=== PATIENT | male | born 1990 | race Two or more races ===

== ENCOUNTER 2016-08-28 11:49 | Emergency (ER) | payer SELFPAY ==
[~2016-08-28] VITALS: Ht 162.6 cm; Wt 72.6 kg
[2016-08-28] MEDS ORDERED: LIDOCAINE WITH 8.4% SOD BICARB 3 ML DISP.SYRIN. IJ ONE (12:16)
--- NOTE | 2016-08-28 12:30 | PHYS DOC ---
Past History Past Medical History: No Pertinent History Past Surgical History: No Surgical History Alcohol Use: None Drug Use: None Adult General Chief Complaint Chief Complaint: LACERATION/AVULSION HPI HPI 26-year-old male presenting to the emergency department after injuring his head well working. He reports hitting his head on lumbar while he was walking. He denies loss of consciousness. He reports last tetanus is unknown. He denies any neck pain numbness weakness or tingling. He is a mild headache that is nonradiating intermittent and without alleviating factors. He did sustain a laceration to his head. Review of systems is negative for chest pain shortness of breath neck pain fevers or chills. All other review of systems is negative unless otherwise noted in history of present illness. ED course: 26-year-old gentleman presenting to the emergency department after sustaining a 3-1/2 cm laceration to the left side of his head. This was repaired in the emergency department. Otherwise nontender midline neck. No other traumatic injuries identified. Tetanus was updated and he was subsequent discharged home. The patient was then discharged home in stable condition to follow up with their primary care physician over the next 2-3 days. They were to return if their symptoms worsened or if they were concerned for any reason. [id number] discharge instructions and return precautions were given. Patient' s questions were answered to their satisfaction. Patient is comfortable plan. Cymraes head CT rules applied. No head CT recommended. Review of Systems Review of Systems SEE ABOVE. Current Medications Current Medications Current Medications Medications (Trade) Dose Ordered Sig/[facility] Start Time Stop Time Status Last Admin Dose Admin Lidocaine/Sodium Bicarbonate (Buffered Lidocaine 1%) 3 ml STSiving Egil [place]-MED ONCE 08/28/16 12:16 08/28/16 12:17 DC Allergies Allergies Allergies Coded Allergies Type Severity Reaction Last Updated Verified No Known Drug Allergies 08/28/16 No Physical Exam Physical Exam Constitutional: Well developed, well nourished, no acute distress, non-toxic appearance. [] HENT: Normocephalic, bilateral external ears normal, oropharynx moist, no oral exudates, nose normal. 3.5 cm laceration to the left parietal region. Eyes: PERRLA, EOMI, conjunctiva normal, no discharge. [] Neck: Normal range of motion, no tenderness, supple, no stridor. Posterior neck is nontender to palpation midline. No step-offs. Cardiovascular:Heart rate regular rhythm, no murmur [] Lungs & Thorax: Bilateral breath sounds clear to auscultation [] Abdomen: Bowel sounds normal, soft, no tenderness, no masses, no pulsatile masses. [] Skin: Warm, dry, no erythema, no rash. [] Back: No tenderness, no CVA tenderness. [] Extremities: No tenderness, no cyanosis, no clubbing, ROM intact, no edema. [] Neurologic: Mental status: Awake oriented and alert x3 Cranial nerves: Extraocular movements intact, eyebrows han bilaterally smile symmetric, uvula elevation, shoulder shrug intact, tongue protrusion normal DTRs: 2+ Sensation: equal and normal in all extremities Strength: 5/5 in upper and lower extremities bilaterally Psychologic: Affect normal, judgement normal, mood normal. [] Current Patient Data Vital Signs Vital Signs Date Time Temp Pulse Resp B/P (MAP) Pulse Ox O2 Delivery O2 Flow Rate FiO2 08/28/16 12:03 98.3 73 20 99 EKG EKG [] Radiology/Procedures Radiology/Procedures [] Course & Med Decision Making Course & Med Decision Making Pertinent Labs and Imaging studies reviewed. (See chart for details) [] Dragon Disclaimer Dragon Disclaimer This chart was dictated in whole or in part using Voice Recognition software in a busy, high-work load, and often noisy Emergency Department environment. It may contain unintended and wholly unrecognized errors or omissions. Departure Departure: Impression: Primary Impression: Scalp laceration Additional Impression: Concussion Disposition: 01 HOME, SELF-CARE Condition: STABLE Referrals: PCP,NO (PCP) Patient Instructions: Concussion and Brain Injury, Laceration Care, Adult Additional Instructions: Thank you for allowing us to participate in your care today. Followup with your primary care physician in 3 days if your symptoms do not improve. Call your Primary Doctor tomorrow and inform them of your visit today. If you do not have a primary care provider you can ask for a list of our primary care providers. Return to the emergency department you have any new or concerning findings. This should be evaluated by the primary care physician and any necessary consulting services for continued management within a few days after discharge. Return to emergency room if you have any new or concerning symptoms including but not limited to fever, chills, nausea, vomiting, intractable pain, any new rashes, chest pain, shortness of air, uncontrolled bleeding, difficulty breathing, and/or vision loss. Laceration Repair Lac Repair Indication scalp laceration Procedure: The patient was placed in appropriate positioning and 1% buffered lidocaine was used for anesthesia. The laceration was repaired using rosa. Total repaired wound length is 3.5 cm. No complications Problem Qualifiers DUDLEY SOLANO MD Aug 28, 2016 12:30
[2016-08-28 12:42] VITALS: BP 138/87
[2016-08-28] MEDS ORDERED: DIPHTH,PERTUSS(ACELL),TET TOX 0.5 ML DISP.SYRIN. VAX IM ONE (12:45)
== END 2016-08-28 12:50 | disposition home or self-care (01) ==
LOC: ER 11:49
DX: S06.0X0A Concussion without loss of consciousness, initial encounter (principal); S01.01XA Laceration without foreign body of scalp, initial encounter; W22.03XA Walked into furniture, initial encounter; Y93.01 Activity, walking, marching and hiking; Y99.8 Other external cause status; Y92.89 Other specified places as the place of occurrence of the external cause
CPT/HCPCS: 12002; 90471; 90715; 99283-25

== ENCOUNTER 2016-09-05 14:38 | Emergency (ER) | payer SELFPAY ==
[2016-09-05 14:40] VITALS: BP 120/65
--- NOTE | 2016-09-05 14:59 | PHYS DOC ---
General Chief Complaint: SUTURE/STAPLE REMOVAL Stated Complaint: STAPLE REMOVAL Time Seen by MD: 14:54 Source: patient, old records Exam Limitations: no limitations Problems: History of Present Illness Initial Comments Patient is a 26-year-old male who returns to the emergency department for staple removal. Patient states and records indicate he was here 8 days ago after hitting his head on lumbar suffering a 3.5 cm scalp laceration. It was cleaned and repaired with rosa. Patient states that he has been following wound care instructions and that he has had no new or changing symptoms he denies swelling pain or discharge. He has no other complaints. Timing/Duration: 1 week Severity: moderate Modifying Factors: improves with other Associated Symptoms: other Allergies: Coded Allergies: No Known Drug Allergies (Unverified , 08/28/16) Past Medical History Medical History: no pertinent history Surgical History: noncontributory Social History Smoker: non-smoker Alcohol: none Drugs: none Review of Systems Constitutional: denies chills, denies fever, denies malaise Respiratory: denies cough, denies shortness of breath Cardiovascular: denies chest pain, denies palpitations Gastrointestinal: denies nausea, denies vomiting Musculoskeletal: denies joint swelling, denies neck pain Skin: see HPI Psychiatric/Neurological: denies headache, denies numbness, denies paresthesia Physical Exam General Appearance: WD/WN, no apparent distress Ear, Nose, Throat: hearing grossly normal, normal ENT inspection Neck: full range of motion, supple Respiratory: normal breath sounds, no respiratory distress Extremities: normal range of motion, non-tender Neurologic/Psychiatric: peoplesoft analyst II-XII nml as tested, no motor/sensory deficits, alert, normal mood/affect, oriented x 3 Skin: warm/dry (left occipital healing laceration rosa in place edges are approximated. No evidence of infection rosa are ready to be removed.) Orders, Labs, Meds Wound rechecked after staple removal by RN, no new or changing symptoms no bleeding discharge. Pt denies questions or complaints. Departure Time of Disposition: 14:58 Disposition: 01 HOME, SELF-CARE Diagnosis: staple removal Condition: GOOD Patient Instructions: Staple Removal, Care After Additional Instructions: Wash the area twice daily with soap and warm water for the next 2-3 days. Follow-up with your doctor or return to the ED with new or worsening symptoms. FAISAL JEFFREY DO Sep 05, 2016 14:59
== END 2016-09-05 15:05 | disposition home or self-care (01) ==
LOC: ER 14:38
DX: S01.01XD Laceration without foreign body of scalp, subsequent encounter (principal); X58.XXXD Exposure to other specified factors, subsequent encounter; Y99.8 Other external cause status; Y92.89 Other specified places as the place of occurrence of the external cause
CPT/HCPCS: 99281

== ENCOUNTER 2019-04-17 12:46 | Emergency (ER) | payer OTHER ==
[~2019-04-17] VITALS: Ht 162.6 cm; Wt 66.7 kg
[2019-04-17 12:46] VITALS: BP 121/53
[2019-04-17] MEDS ORDERED: IBUPROFEN 600 MG TABLET. PO ONE (13:00)
[2019-04-17] MEDS ORDERED: ACETAMINOPHEN 500 MG TABLET PO ONE (13:00)
--- NOTE | 2019-04-17 13:02 | PHYS DOC ---
Past History Past Medical History: No Pertinent History Past Surgical History: No Surgical History Alcohol Use: None Drug Use: None Adult General Chief Complaint Chief Complaint: FLU SYMPTOM HPI HPI Patient is a 29-year-old male who presents with complaint of fever and chills since yesterday. Denies cough, congestion, sore throat, ear pain. Last took ibuprofen at 4:00 this morning. Patient was cleansed of a headache. No neck stiffness. No recent sick contacts. Review of Systems Review of Systems All other ROS is negative unless otherwise stated in HPI Allergies Allergies Allergies Coded Allergies Type Severity Reaction Last Updated Verified No Known Drug Allergies 08/28/16 No Physical Exam Physical Exam See above Constitutional: Well developed, well nourished, appears ill HENT: Normocephalic, atraumatic, bilateral external ears normal, oropharynx moist, no oral exudates, nose normal. Posterior pharynx normal Eyes: PERRLA, EOMI, conjunctiva normal, no discharge. [] Neck: Normal range of motion, no tenderness, supple, no stridor. [] Cardiovascular:Heart rate regular rhythm, no murmur [] Lungs & Thorax: Bilateral breath sounds clear to auscultation [] Abdomen: Bowel sounds normal, soft, no tenderness, no masses, no pulsatile masses. [] Skin: Hot, dry, no erythema, no rash. [] Back: No tenderness, no CVA tenderness. [] Extremities: No tenderness, no cyanosis, no clubbing, ROM intact, no edema. [] Neurologic: Alert and oriented X 3, normal motor function, normal sensory funct ion, no focal deficits noted. [] Psychologic: Affect normal, judgement normal, mood normal. [] Current Patient Data Lab Results Laboratory Tests Test 04/17/19 12:52 Influenza Type A (Rapid) Negative Influenza Type B (Rapid) Negative Current Medications Medications (Trade) Dose Ordered Sig/Stanley Route PRN Reason Start Time Stop Time Status Last Admin Dose Admin Ibuprofen (Motrin) 600 mg 1X ONCE PO 04/17/19 13:00 04/17/19 13:07 DC 04/17/19 13:00 Acetaminophen (Tylenol) 1,000 mg 1X ONCE PO 04/17/19 13:00 04/17/19 13:07 DC 04/17/19 13:00 EKG EKG [] Radiology/Procedures Radiology/Procedures [] Course & Med Decision Making Course & Med Decision Making Pertinent Labs and Imaging studies reviewed. (See chart for details) Patient seen for flulike symptoms. We'll check for flu and give ibuprofen and Tylenol for fever. Flu is negative but we will go ahead and treat based on symptoms. Dragon Disclaimer Dragon Disclaimer This electronic medical record was generated, in whole or in part, using a voice recognition dictation system. Departure Departure: Impression: Primary Impression: Flu-like symptoms Additional Impression: Fever Disposition: HOME, SELF-CARE Condition: STABLE Referrals: PCP,NO (PCP) Patient Instructions: Influenza, Adult Additional Instructions: Alternate ibuprofen and Tylenol every 3-4 hours for fever. Push fluids Scripts Oseltamivir Phosphate (TAMIFLU) 75 Mg Capsule 1 CAP PO BID for Flu Symptoms, #10 CAP Prov: AMOS RAZO DO 04/17/19 Problem Qualifiers AMOS RAZO DO Apr 17, 2019 13:02
[2019-04-17 13:20] LABS: INFLUENZA A PATIENT NEGATIVE (NEGATIVE); INFLUENZA B PATIENT NEGATIVE (NEGATIVE)
[2019-04-17] MEDS ORDERED: OSEL75CA PO (13:33)
== END 2019-04-17 13:35 | disposition home or self-care (01) ==
LOC: ER 12:46
DX: R50.9 Fever, unspecified (principal); R51 Headache
CPT/HCPCS: 87804; 99284

== ENCOUNTER 2019-11-20 05:11 | Emergency (ER) | payer OTHER ==
[~2019-11-20] VITALS: Ht 162.6 cm; Wt 69.3 kg
[~2019-11-20 05:11] MED LIST: OSEL75CA PO
--- NOTE | 2019-11-20 05:36 | PHYS DOC ---
Past History Past Medical History: No Pertinent History (TRENT CACERES MD) Past Surgical History: No Surgical History (TRENT CACERES MD) Alcohol Use: None Drug Use: None (TRENT CACERES MD) General Adult HPI: HPI: ".. I... fall... yesterday... pickup.... I... Mucho dolar.. in [place].. .. " Patient is a 29 year old male from [place] who presents with above hx and complaints severe pain in left arm with localization and left elbow. Patient was unloading objects from the back of his pickup, and fell backwards off his pickup. Patient attempted to break his fall with an outstretched arm- FOOSH injury and then impacted Lt elbow.. Patient has obvious marked swelling in left elbow. There appears to be marked tenderness on percussion of proximal radial. Does have deltoid sensation. Does have distal humerus tenderness and proximal forearm tenderness. Patient is left-hand dominant. Distal capillary refill left hand is equal to right hand. Injury occurred at 2200 hrs. Patient works and lawn care. No ice immunosuppression. No history of fever or chills. Denies recent travel. Denies specific ill contacts. Denies any history of recent fever or chills. (TRENT CACERES MD) Review of Systems: Review of Systems: Constitutional: Denies fever or chills Eyes: Denies change in visual acuity HENT: Denies nasal congestion or sore throat Respiratory: Denies cough or shortness of breath Cardiovascular: Denies chest pain or edema GI: Denies abdominal pain, nausea, vomiting, bloody stools or diarrhea : Denies dysuria Musculoskeletal: Complains of left arm pain after fall out of back a pickup yesterday Integument: Denies rash Neurologic: Denies headache, focal weakness or sensory changes Endocrine: Denies polyuria or polydipsia Lymphatic: Denies swollen glands Psychiatric: Denies depression or anxiety (TRENT CACERES MD) Heart Score: Risk Factors: Risk Factors: DM, Current or recent (<one month) smoker, HTN, HLP, family hist ory of CAD, obesity. Risk Scores: Score 0 - 3: 2.5% MACE over next 6 weeks - Discharge Home Score 4 - 6: 20.3% MACE over next 6 weeks - Admit for Clinical Observation Score 7 - 10: 72.7% MACE over next 6 weeks - Early Invasive Strategies (TRENT CACERES MD) Family History: Family History: Noncontributory to presentation (TRENT CACERES MD) Current Medications: Current Meds: See nursing for home meds (TRENT CACERES MD) Allergies: Allergies: Allergies Coded Allergies Type Severity Reaction Last Updated Verified No Known Drug Allergies 08/28/16 No (TRENT CACERES MD) Physical Exam: PE: Constitutional: in moderate acute distress, non-toxic appearance. [] HENT: Normocephalic, atraumatic, bilateral external ears normal, oropharynx moist, no oral exudates, nose normal. [] Eyes: PERRLA, EOMI, conjunctiva normal, no discharge. [] Neck: Normal range of motion, no tenderness, supple, no stridor. [] Cardiovascular:Heart rate regular rhythm, no murmur [] Lungs & Thorax: Bilateral breath sounds equal at apex on auscultation [] Abdomen: Bowel sounds normal, soft, no tenderness, no masses, no pulsatile masses. [] Skin: Warm, dry, no erythema, no rash. [] Back: No tenderness, no CVA tenderness. [] Extremities: No tenderness, no cyanosis, no clubbing, ROM intact, no edema. Except findings as noted in left arm as per HPI Neurologic: Alert and oriented X 3, normal motor function, normal sensory function, no focal deficits noted. Except findings as noted in left arm as per HPI Psychologic: Affect anxious, judgement normal, mood normal. [] (TRENT CACERES MD) EKG: EKG: [] (TRENT CACERES MD) Radiology/Procedures: Radiology/Procedures: [][address] [address] IMAGING REPORT Signed PATIENT: HONEY TOPETE: [id number] : 1990 LOCATION: ER AGE: 29 SEX: M EXAM STATUS: REG ER ORD. PHYSICIAN: TRENT CACERES MD REASON: fall out back pickup PROCEDURE: ELBOW LEFT 3V Examination: 2 views of the left humerus, 3 views of the left elbow, 2 views of the left forearm HISTORY: History of fall, pain COMPARISON: None available. FINDINGS: The alignment of the humerus grossly appears unremarkable. There is mild displaced fracture of the head of the radius. Elbow joint effusion is identified with elevation of the anterior and posterior fat pads. The alignment of the radius, ulna grossly appears unremarkable IMPRESSION: 1. Mild displaced fracture of the head of the radius. Electronically signed by: Archie Brown MD (11/20/2019 6:34 AM) [id number] DICTATED AND SIGNED BY: ARCHIE BROWN MD DATE: 11/20/1932 CC: TRENT CACERES MD; PCP,NO ~ (TRENT CACERES MD) Radiology/Procedures: PROCEDURE: ELBOW LEFT 3V Examination: 2 views of the left humerus, 3 views of the left elbow, 2 views of the left forearm HISTORY: History of fall, pain COMPARISON: None available. FINDINGS: The alignment of the humerus grossly appears unremarkable. There is mild displaced fracture of the head of the radius. Elbow joint effusion is identified with elevation of the anterior and posterior fat pads. The alignment of the radius, ulna grossly appears unremarkable IMPRESSION: 1. Mild displaced fracture of the head of the radius. Electronically signed by: Archie Brown MD (11/20/2019 6:34 AM) [id number] (JANES MOTTA DO) Course & Med Decision Making: Course & Med Decision Making Pertinent Labs and Imaging studies reviewed. (See chart for details) Pt endorsed to Dr. Motta at Shift change- He will make disposition of Pt. Patient use ice packs as needed. Patient take Tylenol and ibuprofen for pain. Patient elevate arm. Patient to follow-up with primary care. Patient follow-up with Ortho. Patient to wear a sling. Suspect patient has fracture in the elbow x-rays pending at end of shift. Impression: 1. Fall 2. Mildly displaced fracture of proximal radial head left [] (TRENT CACERES MD) Course & Med Decision Making Comprehensive signout obtained from off going physician Discussed at length history of presenting illness and ER work-up thus far Reviewed recently completed imaging studies significant for mildly displaced closed radial head fracture of left upper extremity I communicated this finding to patient and significant other who is present. Patient does not have PCP, I am concerned for his ability to follow-up with PCP and/or Orth O in outpatient setting. Because of this, [facility] on-call orthopedist was called and case discussed Dr. Rehman recommended sling immobilization and flexion with outpatient follow- up this upcoming week. Continued NSAIDs and Tylenol for pain control in addition to ice recommended Patient does not have PCP, I have provided him with local clinicians in area who are open to seeing new patients, I advised him to call and schedule outpatient follow-up in upcoming 2 to 14 days time to establish care Strict return precautions were discussed with good understanding by patient, all questions and concerns addressed prior to ER departure in stable condition (JANES MOTTA DO) Saroj Disclaimer: Dragon Disclaimer: This electronic medical record was generated, in whole or in part, using a voice recognition dictation system. (TRENT CACERES MD) Departure Departure: Impression: Primary Impression: Fracture of radial head, left, closed Disposition: 01 HOME/RESIDENCE PRIOR TO ADM Condition: STABLE Referrals: PCP,NO (PCP) BRENT REHMAN II, MD Necesito que hosea Perez para cite Patient Instructions: Radial Head Fracture Justification of Admission: Justification of Admission: Justification of Admission Dx: N/A (TRENT CACERES MD) Justification of Admission Dx: N/A (JANES MOTTA DO) Saroj Disclaimer This chart was dictated in whole or in part using Voice Recognition software in a busy, high-work load, and often noisy Emergency Department environment. It may contain unintended and wholly unrecognized errors or omissions. (TRENT CACERES MD) TRENT CACERES MD Nov 20, 2019 05:36 JANES MOTTA DO Nov 20, 2019 06:57
[2019-11-20] MEDS ORDERED: MORPHINE SULFATE 10 MG/ML SYRINGE. SQ ONE (06:00)
--- NOTE | 2019-11-20 06:37 | RAD ---
Examination: 2 views of the left humerus, 3 views of the left elbow, 2 views of the left forearm HISTORY: History of fall, pain COMPARISON: None available. FINDINGS: The alignment of the humerus grossly appears unremarkable. There is mild displaced fracture of the head of the radius. Elbow joint effusion is identified with elevation of the anterior and posterior fat pads. The alignment of the radius, ulna grossly appears unremarkable IMPRESSION: 1. Mild displaced fracture of the head of the radius. Electronically signed by: Archie Brown MD (11/20/2019 6:34 AM) [id number]
[2019-11-20 07:00] VITALS: BP 122/79
== END 2019-11-20 07:08 | disposition home or self-care (01) ==
LOC: ER 05:11
DX: S52.502A Unspecified fracture of the lower end of left radius, initial encounter for closed fracture (principal); W18.39XA Other fall on same level, initial encounter; Y93.89 Activity, other specified; Y92.89 Other specified places as the place of occurrence of the external cause; Y99.8 Other external cause status
CPT/HCPCS: 73060; 73080; 73090; 96372; 99284; J2270

== ENCOUNTER → 2019-11-29 | Outpatient (CLI) | payer OTHER ==
[2019-03-11 20:05] VITALS: BP 136/68
--- NOTE | 2019-11-29 16:42 | RAD ---
4 view left elbow study Clinical indications: Painful to move. Injured one week ago. FINDINGS: Left elbow joint effusion is seen. This is due to a nondisplaced nondepressed proximal left radial head fracture. No dislocation is seen. No lytic process is evident. IMPRESSION: Nondisplaced fracture of the proximal left radius. Electronically signed by: Atul Landaverde MD (11/29/2019 4:38 PM) [id number]
== END | disposition home or self-care (01) ==
LOC: MERGE 10:39 → DXRAD 10:39
PROVIDERS: ATTEND Physician Assistant
DX: S52.125A Nondisplaced fracture of head of left radius, initial encounter for closed fracture (principal); M25.422 Effusion, left elbow; X58.XXXA Exposure to other specified factors, initial encounter; Y93.89 Activity, other specified; Y92.89 Other specified places as the place of occurrence of the external cause; Y99.8 Other external cause status
CPT/HCPCS: 73080

== ENCOUNTER → 2019-12-28 | Outpatient (CLI) | payer OTHER ==
--- NOTE | 2019-12-28 11:56 | RAD ---
EXAMINATION: ELBOW LEFT 3V CLINICAL HISTORY: Follow-up left elbow fracture TECHNIQUE: ELBOW LEFT 3V Number of Images/Views: 3 COMPARISON: None FINDINGS: Mildly displaced radial head fracture remains in similar alignment with persistent radiolucent fracture plane an increase callus formation. Joint spaces and alignment are unchanged. Decreased joint effusion with probable trace residual. IMPRESSION: Healing left radial head fracture. Electronically signed by: Robert Romero DO (12/28/2019 11:53 AM) [id number]
== END ==
LOC: RAD 10:36
PROVIDERS: ATTEND Physician Assistant
DX: S52.125D Nondisplaced fracture of head of left radius, subsequent encounter for closed fracture with routine healing (principal); X58.XXXD Exposure to other specified factors, subsequent encounter
CPT/HCPCS: 73080

== ENCOUNTER 2020-11-22 19:23 | Emergency (ER) | payer OTHER ==
[~2020-11-22] VITALS: Ht 162.6 cm; Wt 69.3 kg
[2020-11-22] MEDS ORDERED: ACETAMINOPHEN 500 MG TABLET PO ONE (19:45)
[2020-11-22] MEDS ORDERED: diphenhydrAMINE 50 MG/ML VIAL IVP ONE (19:45)
[2020-11-22] MEDS ORDERED: KETOROLAC 30 MG/ML VIAL. IVP ONE (19:45)
[2020-11-22] MEDS ORDERED: METOCLOPRAMIDE HCL 10 MG/2 ML VIAL. IVP ONE (19:45)
[2020-11-22] MEDS ORDERED: IV NORMAL SALINE 1,000ML 1,000 ML IV ONE (19:45)
--- NOTE | 2020-11-22 19:47 | PHYS DOC ---
Past History Past Medical History: No Pertinent History Past Surgical History: No Surgical History Alcohol Use: Occasionally Drug Use: None General Adult EDM: Chief Complaint: HEADACHE HPI: HPI: 30-year-old male presents with headache, fever, body aches, sore throat. The patient started having symptoms this morning around 8 AM. He has had a fever up to 102 today. He has a sore throat that is uncomfortable every time he swallows. The patient had his first COVID-19 vaccine and is due for his second shot tomorrow. He has no other complaints this time. Review of Systems: Review of Systems: Constitutional: Fever, chills, body aches. Eyes: Denies change in visual acuity HENT: sore throat Respiratory: Denies cough or shortness of breath Cardiovascular: Denies chest pain or edema GI: Denies abdominal pain, nausea, vomiting, bloody stools or diarrhea : Denies dysuria Musculoskeletal: Denies back pain or joint pain Integument: Denies rash Neurologic: Denies headache, focal weakness or sensory changes Endocrine: Denies polyuria or polydipsia Lymphatic: Denies swollen glands Psychiatric: Denies depression or anxiety Allergies: Allergies: Allergies Coded Allergies Type Severity Reaction Last Updated Verified No Known Drug Allergies 08/28/16 No Physical Exam: PE: Constitutional: Well developed, well nourished, no acute distress, non-toxic appearance. [] HENT: Normocephalic, atraumatic, bilateral external ears normal, oropharynx moist, no oral exudates, nose normal. [] Eyes: PERRLA, EOMI, conjunctiva normal, no discharge. [] Neck: Normal range of motion, no tenderness, supple, no stridor. [] Cardiovascular: Heart rate 103, regular rhythm, no murmur [] Lungs & Thorax: Bilateral breath sounds clear to auscultation [] Abdomen: Bowel sounds normal, soft, no tenderness, no masses, no pulsatile masses. [] Skin: Warm, dry, no erythema, no rash. [] Back: No tenderness, no CVA tenderness. [] Extremities: No tenderness, no cyanosis, no clubbing, ROM intact, no edema. [] Neurologic: Alert and oriented X 3, normal motor function, normal sensory function, no focal deficits noted. [] Psychologic: Affect normal, judgement normal, mood normal. [] EKG: EKG: [] Radiology/Procedures: Radiology/Procedures: [] Heart Score: C/O Chest Pain: N/A Risk Factors: Risk Factors: DM, Current or recent (<one month) smoker, HTN, HLP, family history of CAD, obesity. Risk Scores: Score 0 - 3: 2.5% MACE over next 6 weeks - Discharge Home Score 4 - 6: 20.3% MACE over next 6 weeks - Admit for Clinical Observation Score 7 - 10: 72.7% MACE over next 6 weeks - Early Invasive Strategies Course & Med Decision Making: Course & Med Decision Making Pertinent Labs and Imaging studies reviewed. (See chart for details) For his headache, I given the patient 1 L normal saline, 30 mg of Toradol, 10 mg of Reglan, 25 mg of Benadryl. For his fever given a gram of Tylenol. The patient's rapid strep is negative. This is likely COVID-19 despite starting his vaccination regimen. He is likely a breakthrough case and he was not completely vaccinated yet. I have advised that he wait for his COVID-19 results should be back tomorrow. If they are negative he can get his second vaccine in a week. If they are positive he should wait 30 days. He should isolate himself until he gets results. He is stable for discharge at this time. [] Saroj Disclaimer: Saroj Disclaimer: This electronic medical record was generated, in whole or in part, using a voice recognition dictation system. Departure Departure: Impression: Primary Impression: Suspected COVID-19 virus infection Disposition: HOME / SELF CARE / HOMELESS Condition: STABLE Referrals: PCP,NO (PCP) Additional Instructions: You have been tested for or diagnosed with COVID-19. It is an infection caused by a new type of coronavirus. COVID-19 will cause cold-like or mild flu symptoms in most. It can cause more severe symptoms like problems breathing in some. There is no treatment for COVID-19. The body will clear the infection over time. Self-care will help to ease discomfort. Steps to Take: Self-Care Rest as needed. Healthy habits may help you feel better. Steps include: Choose healthy foods including fruits and vegetables. Drink water throughout the day. Get plenty of sleep each night. If you smoke, try to quit. It may ease breathing. Avoid alcohol. Keep Others Healthy The virus can spread to others. Droplets are released every time you sneeze or cough. The droplets can get into the mouth, nose, or eyes of people near you and lead to infection. To lower the chances of spreading COVID-19 to others: Stay at home until your doctor has said it is safe to leave. If you tested positive this will mean staying isolated until both of the following are true: At least 7 days have passed since the start of illness. You are free of fever for at least 72 hours without the use of medicine. During this time: - Avoid public areas, events, or transportation. Do not return to work or school until your doctor has said it is safe to do so. - Call ahead if you need to go to a medical center. Let them know you may have COVID-19. It will help them guide you where to go. They may also ask you to wear a facemask when you come to the office. - If you call for emergency medical services, let them know you may have COVID- 19. While at home: - Try to avoid close contact with others. Stay about 6 feet away. - If possible, spend most of your time in a separate room from others. - Use a face mask if you will be in close contact with others such as sharing a room or vehicle. - Have someone wipe down common surfaces in the home. Use household lay out maker every day on areas like doorknobs, counters, or sinks. - Cough or sneeze into a tissue. Throw the tissue away right after use. If a tissue is not available, cough or sneeze into your elbow. - Wash your hands often. Wash them after sneezing or coughing. Use soap and alphonso er and wash for at least 20 seconds. Alcohol based hand curve cleaner can be used if soap and water is not available. - Do not prepare food for others. Avoid sharing personal items like forks, spoons, or toothbrushes. - Avoid close contact with pets while you are sick. There is no evidence of the virus passing to pets. This is a safety step until more is known about this virus. Isolation can be frustrating. Social interaction can help. Keep in touch with friends and family through phone and tech options. You can still interact with others in your home, just keep a safe distance of about 6 feet. Follow-up: Your doctors office will check in with you to see if there are any changes in your health. You may be asked to keep track of symptoms to share with them. They will also let you know when you are clear to be in public again. Problems to Look Out For: Contact your doctor if your recovery is not going as you expect. Get emergency care if you have problems such as: - Trouble breathing - Nonstop chest pain or pressure - Changes in awareness, confusion, or problems waking - Lips or face have bluish color - Worsening of symptoms If you think you have an emergency, call for emergency medical services right away. As taken from [facility] JENS IGNACIO DO Nov 22, 2020 19:47
[2020-11-22 21:40] LABS: BASO % 0 % (0-3); EOS % 0 % (0-3); HEMATOCRIT 44.8 % (39.0-53.0); HEMOGLOBIN 15.2 g/dL (13.0-17.5); LYMPH # 0.6 x10^3/uL (1.0-4.8); LYMPH % 7 % (24-48); MEAN CORPUSCULAR HEMOGLOBIN 30 pg (25-35); MEAN CORPUSCULAR HGB CONC 34 g/dL (31-37); MEAN CORPUSCULAR VOLUME 88 fL (79-100); MONO # 0.9 x10^3/uL (0.0-1.1); MONO % 10 % (0-9); NEUT # 7.4 x10^3uL (1.8-7.7); NEUT % 83 % (31-73); PLATELET COUNT 218 x10^3/uL (140-400); RED BLOOD COUNT 5.11 x10^6/uL (4.30-5.70); RED CELL DISTRIBUTION WIDTH 13.9 % (11.5-14.5)
[2020-11-22 21:41] LABS: CALCIUM 9.3 mg/dL (8.5-10.1); POTASSIUM 3.4 mmol/L (3.5-5.1)
[2020-11-22 21:47] LABS: ALBUMIN 4.1 g/dL (3.4-5.0); ALBUMIN/GLOBULIN RATIO 1.1 (1.0-1.7); TOTAL BILIRUBIN 0.4 mg/dL (0.2-1.0); TOTAL PROTEIN 7.9 g/dL (6.4-8.2)
--- NOTE | 2020-11-22 22:25 | RAD ---
EXAM: CHEST 1 VIEW History: covid COMPARISON: None available. TECHNIQUE: Single portable radiograph of the chest FINDINGS: The cardiac silhouette is unremarkable. The lungs are clear bilaterally. The costophrenic sulci are clear and well demarcated. IMPRESSION: No radiographic evidence of an acute cardiopulmonary process. Electronically signed by: Archie Brown MD (11/22/2020 10:23 PM) [id number]
[2020-11-22 22:36] VITALS: BP 119/66
--- NOTE | 2020-11-23 09:33 | NUR ---
IP: Attempted to contact pt concerning covid results. No answer, left a voicemail to return the call.
--- NOTE | 2020-11-24 14:52 | NUR ---
IP: Second attempt made to contact pt concerning covid results. No answer, again left a voicemail to return the call
== END 2020-11-22 22:45 | disposition home or self-care (01) ==
LOC: ER 19:23
DX: Z20.822 Contact with and (suspected) exposure to COVID-19 (principal); R50.9 Fever, unspecified; J02.9 Acute pharyngitis, unspecified
CPT/HCPCS: 71045; 80053; 85025; 87070; 87880; 96361; 96374; 96375; 99284; C9803; J1200; J1885; J2765; J7030; U0003

== ENCOUNTER → 2021-05-24 | Outpatient (CLI) | payer OTHER ==
--- NOTE | 2021-05-24 14:54 | RAD ---
2 views left elbow compared to 3 views the left elbow dated December 29, 2019 for elbow pain for 2 to 3 weeks while extending the arm. FINDINGS: Previously seen impacted fracture the radial head has healed. There is no current fracture, dislocation, or acute osseous abnormality. There is some interval osteoarthritis about the olecranon and trochlea. No joint effusion. No radiopaque foreign bodies. IMPRESSION: 1. No acute osseous abnormalities. 2. 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 Electronically signed by: Moses Nicolas MD (05/24/2021 2:51 PM) [id number]
== END ==
LOC: RAD 09:33
PROVIDERS: ATTEND Physician Assistant
DX: M19.022 Primary osteoarthritis, left elbow (principal)
CPT/HCPCS: 73070